=== PATIENT | female | born 1950 | race Hispanic/Latino ===

== ENCOUNTER 2018-07-18 08:55 | Emergency (ER) | payer OTHER, MEDICARE ==
[2018-07-18] MEDS ORDERED: ONDANSETRON ODT 4 MG TAB ONE (09:59)
[2018-07-18] MEDS ORDERED: MORPHINE SULFATE 2 MG/ML 1ML SYG ONE (09:59)
[2018-07-18 10:01] LABS: BASOPHILS % (AUTO) 0.4 % (0.0-5.0); EOSINOPHILS % (AUTO) 1.3 % (0.0-8.0); LYMPHOCYTES % (AUTO) 15.2 % (21.0-51.0); MEAN CORPUSCULAR HEMOGLOBIN 30.6 pg (27.0-33.0); MEAN CORPUSCULAR HGB CONC 34.2 g/dL (32.0-36.0); MEAN CORPUSCULAR VOLUME 89.7 fL (79-99); MONOCYTES % (AUTO) 6.1 % (3.0-13.0); PLATELET COUNT (AUTO) 172 K/uL (130-400); RED BLOOD CELL COUNT(AUTO) 4.01 MIL/uL (4.00-5.50); WHITE BLOOD COUNT (AUTO) 10.4 K/uL (4.8-10.8)
[2018-07-18 10:07] LABS: CREATININE 0.9 mg/dL (0.5-1.5); POTASSIUM 3.7 mmol/L (3.5-5.1)
[2018-07-18 10:18] LABS: INR 0.98 (0.85-1.15); PARTIAL THROMBOPLASTIN TIME 24.7 SEC (26.3-35.5); PROTHROMBIN TIME 10.3 SEC (9.6-11.6)
[2018-07-28] MEDS ORDERED: ATOR40TA71 PO (16:10)
[2018-07-28] MEDS ORDERED: LEVO100T12 PO (16:10)
[2018-07-28] MEDS ORDERED: IBUP-2070 PO (16:10)
[2018-07-28] MEDS ORDERED: LISI-613 PO (16:10)
[2018-07-28] MEDS ORDERED: HYDR12.54 PO (16:10)
[2018-07-28] MEDS ORDERED: CLOP75TA32 PO (16:10)
[2018-07-28] MEDS ORDERED: ASPI-1026 PO (16:10)
== END 2018-07-18 11:59 | disposition home or self-care (01) ==
LOC: EDH 08:55
DX: S42.391A Other fracture of shaft of right humerus, initial encounter for closed fracture (principal); I10 Essential (primary) hypertension; E07.9 Disorder of thyroid, unspecified; Z86.73 Personal history of transient ischemic attack (TIA), and cerebral infarction without residual deficits; W01.0XXA Fall on same level from slipping, tripping and stumbling without subsequent striking against object, initial encounter; Y93.01 Activity, walking, marching and hiking; Y92.480 Sidewalk as the place of occurrence of the external cause; Y99.8 Other external cause status
CPT/HCPCS: 29105; 36415; 73060; 80048; 85025; 85610; 85730; 96372

== ENCOUNTER 2018-07-29 09:32 | Observation (INO) | payer OTHER, MEDICARE ==
[2018-07-28 15:53] VITALS: BP 113/51
[2018-07-28 15:58] LABS: BASOPHILS % (AUTO) 0.8 % (0.0-5.0); EOSINOPHILS % (AUTO) 2.1 % (0.0-8.0); HEMATOCRIT 31.8 % (36-48); LYMPHOCYTES % (AUTO) 23.5 % (21.0-51.0); MEAN CORPUSCULAR HEMOGLOBIN 30.6 pg (27.0-33.0); MEAN CORPUSCULAR VOLUME 90.1 fL (79-99); MONOCYTES % (AUTO) 10.4 % (3.0-13.0); NEUTROPHILS % (AUTO) 63.2 % (40.0-77.0); PLATELET COUNT (AUTO) 255 K/uL (130-400); RED BLOOD CELL COUNT(AUTO) 3.53 MIL/uL (4.00-5.50); RED CELL DISTRIBUTION WIDTH 13.6 % (11.0-15.5); WHITE BLOOD COUNT (AUTO) 7.7 K/uL (4.8-10.8)
[2018-07-28 16:08] LABS: CREATININE 1.1 mg/dL (0.5-1.5); POTASSIUM 4.5 mmol/L (3.5-5.1)
[2018-07-28] MEDS: CEFAZOLIN SODIUM 1 GM VIAL IVP SCH (16:30)
[~2018-07-29] VITALS: Ht 165.1 cm; Wt 93.4 kg
[2018-07-29] VITALS (30 sets, daily range): BP systolic 75–116; BP diastolic 32–71
[~2018-07-29 09:32] MED LIST: ASPI-1026 PO; ATOR40TA71 PO; CLOP75TA32 PO; HYDR12.54 PO; IBUP-2070 PO; LEVO100T12 PO; LISI-613 PO
[2018-07-29] MEDS ORDERED: LACTATED RINGERS 1000ML 1,000 ML IV ONE (10:39)
[2018-07-29] MEDS ORDERED: CEFAZOLIN SODIUM 1 GM VIAL ONE ×2 (10:39→16:30)
[2018-07-29] MEDS ORDERED: ONDANSETRON HCL 4 MG/2 ML VIAL ONE (15:04)
[2018-07-29] MEDS ORDERED: LIDOCAINE HCL-MPF 1% 5ML AMP IJ ONE (15:04)
[2018-07-29] MEDS ORDERED: DEXAMETHASONE SOD PHOSPHATE 10MG/ML 1ML VIAL ONE (15:04)
[2018-07-29] MEDS ORDERED: LIDOCAINE HCL 2% JELLY 5 ML ONE (15:04)
[2018-07-29] MEDS ORDERED: PROPOFOL 10 MG/ML 20ML VIAL IV ONE (15:04)
[2018-07-29] MEDS ORDERED: NEOSTIGMINE 5MG/5ML SYR IV ONE (15:04)
[2018-07-29] MEDS ORDERED: LIDOCAINE HCL 4% LTA SOL 4 ML VIAL ONE ×2 (15:04→15:08)
[2018-07-29] MEDS ORDERED: LIDOCAINE PF 2% 5ML ABBOJECT ONE (15:04)
[2018-07-29] MEDS ORDERED: GLYCOPYRROLATE 1 MG/5 ML SYRINGE ONE (15:04)
[2018-07-29] MEDS ORDERED: MIDAZOLAM HCL 1 MG/ML 2ML VIAL ONE (15:05)
[2018-07-29] MEDS ORDERED: FENTANYL CITRATE PF 50 MCG/1 ML 2ML VIAL ONE ×3 (15:05→19:34)
[2018-07-29] MEDS ORDERED: ROCURONIUM 10MG/1ML SYR 10 MG/ML ML ONE (15:05)
[2018-07-29] MEDS: CEFAZOLIN SODIUM 1 GM VIAL IVP SCH (16:15)
[2018-07-29] MEDS ORDERED: PHENYLEPHRINE HCL 10 MG/ML 1ML VIAL IV ONE (17:32)
[2018-07-29] MEDS ORDERED: LIDOCAINE HCL-MPF 1% 2ML VIAL IVP PRN (19:30)
[2018-07-29] MEDS ORDERED: DIPHENHYDRAMINE HCL 25 MG CAPSULE PO PRN (19:30)
[2018-07-29] MEDS ORDERED: CALCIUM CARBONATE 500 MG TABLET PO PRN (19:30)
[2018-07-29] MEDS ORDERED: SODIUM CHLORIDE 0.9% 1000ML 1,000 ML IV SCH (19:30)
[2018-07-29] MEDS ORDERED: FERROUS FUMARATE 324 MG TABLET PO PRN (19:30)
[2018-07-29] MEDS ORDERED: POTASSIUM CHLORIDE 10% ELIXIR 20 MEQ/15 ML UDCUP PO PRN (19:30)
[2018-07-29] MEDS ORDERED: POTASSIUM CHLORIDE 20MEQ/100ML 100 ML IV PRN (19:30)
[2018-07-29] MEDS ORDERED: KETOROLAC TROMETHAMINE 15MG/ML IV PRN (19:30)
[2018-07-29] MEDS ORDERED: PROMETHAZINE HCL 25 MG/ML 1ML AMPULE IM PRN (19:30)
[2018-07-29] MEDS ORDERED: DiphenhydrAMINE HCL 50 MG/ML VIAL IVP PRN (19:30)
[2018-07-29] MEDS ORDERED: HYDROCODONE/ACETAMINOPHEN 5/325 MG TAB PO PRN ×2 (19:30)
[2018-07-29] MEDS ORDERED: TEMAZEPAM 15 MG CAPSULE PO PRN (19:30)
[2018-07-29] MEDS ORDERED: POTASSIUM CHLORIDE 20 MEQ ERTAB PO PRN (19:30)
[2018-07-29] MEDS ORDERED: EPHEDRINE SULFATE 50 MG/ML AMPULE ONE (19:55)
[2018-07-29] MEDS ORDERED: IOHEXOL-350 75 ML VIAL IV ONE (23:45)
[2018-07-30] VITALS (18 sets, daily range): BP systolic 56–107; BP diastolic 38–66
[2018-07-30] MEDS ORDERED: CEFAZOLIN SODIUM 1 GM VIAL ONE (00:11)
[2018-07-30] MEDS ORDERED: SODIUM CHLORIDE 0.9% 1000ML 1,000 ML IV SCH (00:15)
[2018-07-30] MEDS ORDERED: CEFAZOLIN 3GM /D5W 100ML 100 ML IV SCH (00:30)
[2018-07-30] MEDS ORDERED: NOREPINEPHRINE BITARTRATE 1 MG/1 ML ML IV ONE (03:04)
[2018-07-30] MEDS ORDERED: NOREPINEPHRINE 4MG/NS 250ML 250 ML IV SCH (03:30)
[2018-07-30 03:42] LABS: HEMATOCRIT 24.9 % (36-48); MEAN CORPUSCULAR HEMOGLOBIN 29.4 pg (27.0-33.0); MEAN CORPUSCULAR HGB CONC 32.6 g/dL (32.0-36.0); PLATELET COUNT (AUTO) 236 K/uL (130-400); RED BLOOD CELL COUNT(AUTO) 2.77 MIL/uL (4.00-5.50); RED CELL DISTRIBUTION WIDTH 13.7 % (11.0-15.5); WHITE BLOOD COUNT (AUTO) 12.9 K/uL (4.8-10.8)
[2018-07-30 03:58] LABS: POTASSIUM 3.9 mmol/L (3.5-5.1)
[2018-07-30 04:16] LABS: CHOLESTEROL 64 mg/dL (<200); HDL CHOLESTEROL 23 mg/dL (35-85); LDL DIRECT 36 mg/dL (0-99); TRIGLYCERIDES 69 mg/dL (30-200)
[2018-07-30] MEDS ORDERED: ASPIRIN 325 MG TABLET ONE (04:27)
[2018-07-30] MEDS ORDERED: ENOXAPARIN SODIUM 40 MG/0.4 ML SYRINGE SQ SCH (09:00)
[2018-07-30] MEDS ORDERED: HYDROCHLOROTHIAZIDE 25 MG TABLET PO SCH (09:00)
[2018-07-30] MEDS ORDERED: LEVOTHYROXINE 100 MCG TABLET PO SCH (09:00)
[2018-07-30] MEDS ORDERED: POLYETHYLENE GLYCOL 3350 17 GM POWD.PACK PO SCH (09:00)
[2018-07-30] MEDS ORDERED: FAMOTIDINE 20MG TAB 20 MG TAB PO SCH (09:00)
[2018-07-30] MEDS ORDERED: ASPIRIN 325 MG TABLET PO SCH (21:00)
[2018-07-30] MEDS ORDERED: CLOPIDOGREL BISULFATE 75 MG TAB PO SCH (21:00)
[2018-07-30] MEDS ORDERED: LISINOPRIL 20 MG TABLET PO SCH (21:00)
[2018-07-30] MEDS ORDERED: ATORVASTATIN CALCIUM 40 MG TABLET PO SCH (21:00)
== END 2018-07-30 04:33 | disposition short-term general hospital (02) ==
LOC: DAH 09:32 → 4AH 09:33 → 2DH 07-30 00:20
PROVIDERS: ADMIT Orthopaedic Surgery; ATTEND Orthopaedic Surgery
DX: S42.351A Displaced comminuted fracture of shaft of humerus, right arm, initial encounter for closed fracture (principal); I10 Essential (primary) hypertension; E78.00 Pure hypercholesterolemia, unspecified; G47.30 Sleep apnea, unspecified; M75.100 Unspecified rotator cuff tear or rupture of unspecified shoulder, not specified as traumatic; E66.01 Morbid (severe) obesity due to excess calories; X58.XXXA Exposure to other specified factors, initial encounter; Y93.9 Activity, unspecified; Y92.89 Other specified places as the place of occurrence of the external cause; Y99.8 Other external cause status; Z86.73 Personal history of transient ischemic attack (TIA), and cerebral infarction without residual deficits; Z90.710 Acquired absence of both cervix and uterus; Z82.49 Family history of ischemic heart disease and other diseases of the circulatory system; Z83.3 Family history of diabetes mellitus; Z79.899 Other long term (current) drug therapy; Z68.34 Body mass index [BMI] 34.0-34.9, adult
CPT/HCPCS: 24516; 36415 ×3; 70496; 70498; 76000; 80048 ×2; 80061; 85025; 85027; 86850; 86900; 86901; 86922 ×2; 93005; 96374; A4565; A4600; A4930 ×2; A6204; A6207; C1713 ×4; G0168; G0378 ×19; J0690 ×3; J1100; J2001; J2250; J2370; J2405; J2704; J2710; J3010 ×3; J3490 ×4; J7030 ×2; J7120 ×2; Q9967

== ENCOUNTER 2022-03-03 11:47 | Emergency (ER) | payer OTHER, MEDICARE ==
[~2022-03-03] VITALS: Ht 154.9 cm; Wt 72.6 kg
[~2022-03-03 11:47] MED LIST changes: -LISI-613 PO; +LISI20TA24 PO
[2022-03-03] MEDS ORDERED: 0.9% NACL 500ML IV.SOLN 500 ML IV ONE ×2 (12:30→15:30)
[2022-03-03 12:44] LABS: BASOPHILS % (AUTO) 0.2 % (0.0-5.0); EOSINOPHILS % (AUTO) 0.1 % (0.0-8.0); LYMPHOCYTES % (AUTO) 7.5 % (21.0-51.0); MEAN CORPUSCULAR HEMOGLOBIN 29.8 pg (27.0-33.0); MEAN CORPUSCULAR HGB CONC 32.5 g/dL (32.0-36.0); MEAN CORPUSCULAR VOLUME 91.7 fL (79-99); MONOCYTES % (AUTO) 7.2 % (3.0-13.0); NEUTROPHILS % (AUTO) 84.5 % (40.0-77.0); PLATELET COUNT (AUTO) 195 K/uL (130-400); RED BLOOD CELL COUNT(AUTO) 3.49 MIL/uL (4.00-5.50); RED CELL DISTRIBUTION WIDTH 13.2 % (11.0-15.5); WHITE BLOOD COUNT (AUTO) 10.3 K/uL (4.8-10.8)
[2022-03-03 12:59] LABS: CREATININE 1.1 mg/dL (0.5-1.5); POTASSIUM 4.7 mmol/L (3.5-5.1); PROTHROMBIN TIME 10.9 SEC (9.6-11.6)
[2022-03-03 13:01] LABS: PARTIAL THROMBOPLASTIN TIME 20.9 SEC (26.3-35.5)
[2022-03-03 13:04] LABS: ALBUMIN 3.4 g/dL (3.5-5.0); BILIRUBIN,TOTAL 0.3 mg/dL (0.2-1.0); TOTAL PROTEIN, SERUM 6.5 g/dL (6.0-8.3)
[2022-03-03 15:45] LABS: APPEARANCE,URINE Clear (CLEAR); BILIRUBIN,URINE Negative (NEGATIVE); COLOR,URINE Yellow (YELLOW); GLUCOSE, URINE (UA) Negative (NEGATIVE); KETONES,URINE Negative (NEGATIVE); LEUKOCYTE ESTERASE ,URINE Negative (NEGATIVE); NITRATE,URINE Negative (NEGATIVE); OCCULT BLOOD,URINE Negative (NEGATIVE); PH,URINE 5.5 (5.0-8.0); PROTEIN,URINE Negative (NEGATIVE)
[2022-03-03 17:28] VITALS: BP 123/69
== END 2022-03-03 16:57 | disposition home or self-care (01) ==
LOC: EDH 11:47
DX: K92.2 Gastrointestinal hemorrhage, unspecified (principal); M79.604 Pain in right leg; M79.605 Pain in left leg; E86.9 Volume depletion, unspecified; Z20.822 Contact with and (suspected) exposure to COVID-19
CPT/HCPCS: 36415; 71045; 80053; 81003; 82270; 84484; 85025; 85610; 85730; 86850; 86900; 86901; 87635; 87804 ×2; 93005; 93970; 99285; C9803

== ENCOUNTER → 2023-05-12 | Outpatient (CLI) | payer OTHER, MEDICARE | END | disposition home or self-care (01) | LOC: RAH 08:21 | PROVIDERS: ATTEND Family Medicine | DX: R92.2 Inconclusive mammogram (principal); R92.8 Other abnormal and inconclusive findings on diagnostic imaging of breast | CPT/HCPCS: 77066 ==